=== PATIENT | male | born 1980 | race Caucasian/White ===

== ENCOUNTER 2017-05-02 02:58 | Emergency (ER) | payer OTHER ==
[2017-05-02 02:54] LABS: BASOPHILS 0.3 %; BASOPHILS ABSOLUTE 0.03 10/3/uL (0.0-0.16); ER CBC TAT 0 Hrs 05 Mins; HEMATOCRIT 43.8 % (40.0-51.0); HEMOGLOBIN 15.9 g/dL (13.6-17.8); IMMATURE GRANULOCYTES 0.4 %; IMMATURE GRANULOCYTES ABSOLUTE 0.04 10/3/uL (0.0-0.11); LYMPHOCYTES 19.8 %; LYMPHOCYTES ABSOLUTE 2.01 10/3/uL (0.67-4.30); MANUAL DIFF NO %; MEAN CORPUS HGB CONC 36.3 g/dL (32.0-36.0); MEAN CORPUSCULAR HEMOGLOB 31.2 pg (26.0-34.0); MEAN CORPUSCULAR VOLUME 85.9 fL (80-100); MEAN PLATELET VOLUME 12.5 fL (9.2-13.0); MONOCYTES 12.7 %; MONOCYTES ABSOLUTE 1.29 10/3/uL (0.21-1.20); NEUTROPHILS 65.8 %; NEUTROPHILS ABSOLUTE 6.67 10/3/uL (2.02-8.40); PLATELET COUNT 196 10/3/uL (150-400); RBC DISTRIBUTION WIDTH 12.1 % (12.0-16.0); WHITE BLOOD CELLS 10.1 10/3/uL (4.5-10.5)
[~2017-05-02 02:58] MED LIST: HUMALOG SC; LANTUS SC; NEUR800 PO; WELLXL150 PO
[2017-05-02 03:00] LABS: INSTRUMENT SERIAL # 8087; SAMPLE Venous; pH 7.44 (7.37-7.43)
[2017-05-02 03:10] LABS: LACTATE 1.3 MMOL/L (0.3-2.4)
[2017-05-02 03:27] LABS: ALBUMIN 3.7 G/DL (3.5-5.0); ALKALINE PHOSPHATASE 104 U/L (45-117); BUN (BLOOD UREA NITROGEN) 26 MG/DL (6-23); CALCIUM, SERUM 9.6 MG/DL (8.5-10.4); CHLORIDE, SERUM 92 MMOL/L (96-112); CO2 (CARBON DIOXIDE) 29 MMOL/L (24-34); CREATININE 0.96 MG/DL (0.70-1.30); GFR AFRICAN AMERICAN 116 ML/MIN (>=60); GFR NON AFRICAN AMERICAN 100 ML/MIN (>=60); GLOBULIN 3.7 G/DL (2.5-4.1); GLUCOSE, SERUM 435 MG/DL (60-99); POTASSIUM, SERUM 4.2 MMOL/L (3.5-5.3); SGPT(ALT) 37 U/L (5-65); SODIUM, SERUM 131 MMOL/L (135-148); TOTAL BILIRUBIN 0.3 MG/DL (0-1.2); TOTAL PROTEIN 7.4 G/DL (6.0-8.5)
[2017-05-02 03:41] LABS: PARTIAL THROMBO TIME 21.5 SEC (22.5-37.2); PROTIME (NOT ORD) 12.8 SEC (12.0-14.5)
[2017-05-02 03:43] LABS: SGOT(AST) 23 U/L (5-40)
[2017-05-02 03:47] LABS: PROCALCITONIN 0.08 ng/mL (<0.5)
[2017-05-02 04:28] LABS: ASCORBIC ACID (UR NOT ORDER) NEG (NEG); BILIRUBIN, URINE NEGATIVE (NEG); ER URINALYSIS TAT 0 Hrs 16 Mins; KETONE, URINE 20 MG/DL (NEG); LEUKOCYTE ESTERASE(NOT OR NEG (NEG); NITRITE (URINE) NEG (NEG); WBC (NOT ORDERED) (RFLEX) < 1 (0-5)
[2017-05-02 04:43] LABS: AMPHETAMINES (NOT ORD) NEG (NEG); BARBITURATES (NOT ORDERED NEG (NEG); BENZODIAZEPINES (NOT ORD) NEG (NEG); CANNABINOIDS (THC) NEG (NEG); COCAINE (NOT ORDERED) POS (NEG); OPIATES POS (NEG); PHENCYCLIDINE(PCP) NEG (NEG); TRICYCLICS NEG (NEG)
== END 2017-05-02 05:15 | disposition home or self-care (01) ==
LOC: ER 02:58
PROVIDERS: Emergency Medicine
DX: E10.65 Type 1 diabetes mellitus with hyperglycemia (principal); F19.90 Other psychoactive substance use, unspecified, uncomplicated; F17.200 Nicotine dependence, unspecified, uncomplicated; F32.9 Major depressive disorder, single episode, unspecified; Z88.8 Allergy status to other drugs, medicaments and biological substances; Z79.4 Long term (current) use of insulin; Z79.899 Other long term (current) drug therapy
CPT/HCPCS: 71010; 80053; 80305; 81001; 82009; 82805; 82962; 83605; 84145; 85025; 85610; 85730; 87040; 93005; 96374; 99284; A9270-GY

== ENCOUNTER 2017-05-03 06:31 | Emergency (ER) | payer OTHER ==
[2017-05-03 05:40] LABS: BASOPHILS 0.6 %; BASOPHILS ABSOLUTE 0.04 10/3/uL (0.0-0.16); EOSINOPHILS 1.9 %; EOSINOPHILS ABSOLUTE 0.13 10/3/uL (0.0-0.53); ER CBC TAT 0 Hrs 05 Mins; HEMATOCRIT 40.5 % (40.0-51.0); HEMOGLOBIN 14.3 g/dL (13.6-17.8); IMMATURE GRANULOCYTES 0.1 %; IMMATURE GRANULOCYTES ABSOLUTE 0.01 10/3/uL (0.0-0.11); LYMPHOCYTES 24.5 %; LYMPHOCYTES ABSOLUTE 1.68 10/3/uL (0.67-4.30); MEAN CORPUS HGB CONC 35.3 g/dL (32.0-36.0); MEAN CORPUSCULAR HEMOGLOB 30.3 pg (26.0-34.0); MEAN CORPUSCULAR VOLUME 85.8 fL (80-100); MEAN PLATELET VOLUME 12.2 fL (9.2-13.0); MONOCYTES 12.4 %; MONOCYTES ABSOLUTE 0.85 10/3/uL (0.21-1.20); NEUTROPHILS 60.5 %; NEUTROPHILS ABSOLUTE 4.14 10/3/uL (2.02-8.40); PLATELET COUNT 194 10/3/uL (150-400); RBC DISTRIBUTION WIDTH 12.1 % (12.0-16.0); RED CELL COUNT 4.72 10/6/uL (4.7-6.1); WHITE BLOOD CELLS 6.9 10/3/uL (4.5-10.5)
[2017-05-03 05:41] LABS: MANUAL DIFF NO %
[2017-05-03 05:58] LABS: ALBUMIN 3.5 G/DL (3.5-5.0); ALKALINE PHOSPHATASE 95 U/L (45-117); CHLORIDE, SERUM 95 MMOL/L (96-112); CREATININE 0.86 MG/DL (0.70-1.30); GFR AFRICAN AMERICAN 127 ML/MIN (>=60); GFR NON AFRICAN AMERICAN 110 ML/MIN (>=60); GLOBULIN 3.4 G/DL (2.5-4.1); POTASSIUM, SERUM 4.1 MMOL/L (3.5-5.3); SGOT(AST) 17 U/L (5-40); SGPT(ALT) 37 U/L (5-65); SODIUM, SERUM 132 MMOL/L (135-148); TOTAL BILIRUBIN 0.7 MG/DL (0-1.2); TOTAL PROTEIN 6.9 G/DL (6.0-8.5)
[2017-05-03 06:00] LABS: BUN (BLOOD UREA NITROGEN) 17 MG/DL (6-23); CALCIUM, SERUM 8.6 MG/DL (8.5-10.4); CO2 (CARBON DIOXIDE) 23 MMOL/L (24-34); GLUCOSE, SERUM 377 MG/DL (60-99)
[2017-05-03 06:57] LABS: ACETONE SMALL
[2017-05-03 08:08] LABS: ASCORBIC ACID (UR NOT ORDER) NEG (NEG); BILIRUBIN, URINE NEGATIVE (NEG); ER URINALYSIS TAT 0 Hrs 26 Mins; KETONE, URINE 80 MG/DL (NEG); LEUKOCYTE ESTERASE(NOT OR NEG (NEG); NITRITE (URINE) NEG (NEG); WBC (NOT ORDERED) (RFLEX) < 1 (0-5)
== END 2017-05-03 09:18 | disposition home or self-care (01) ==
LOC: ER 06:31
PROVIDERS: Nurse Practitioner
DX: E86.0 Dehydration (principal); F19.10 Other psychoactive substance abuse, uncomplicated; E11.65 Type 2 diabetes mellitus with hyperglycemia; F32.9 Major depressive disorder, single episode, unspecified; F41.9 Anxiety disorder, unspecified; F17.200 Nicotine dependence, unspecified, uncomplicated; Z88.5 Allergy status to narcotic agent; Z88.8 Allergy status to other drugs, medicaments and biological substances; Z79.4 Long term (current) use of insulin; Z79.899 Other long term (current) drug therapy
CPT/HCPCS: 80053; 81001; 82009; 82962; 85025; 96374; 99285; A9270-GY

== ENCOUNTER 2017-05-15 10:20 | Observation (INO) | payer OTHER ==
--- NOTE | ~2017-05-15 | HP ---
History And Physical [place] [id number] [facility] [place]. [address] NAME: NAT GOMEZ : 76 STATUS : ADM IN [facility]#: [id number] AGE: 36 ADM/REG DATE : 05/15/17 MR#: [id number] REPORT SERV DATE: 05/15/17 DICTATED BY: OLIMPIA PICHARDO DATE: 05/15/17 REPORT STATUS : Draft TRANSCRIBED BY: MODReva DATE: 05/15/17 DATE OF ADMISSION: 05/15/2017 REASON FOR ADMISSION: Mild diabetic ketoacidosis. HISTORY OF PRESENT ILLNESS: This is a 36-year-old white male, who says he had some bad chicken. He has been having some nausea, vomiting, and diarrhea since he ate it two or three days ago. He has not taken his insulin last three days. In the emergency room, he presented with a blood sugar of 589. However, with one dose of insulin, it has come down to 120. Insulin drip was going to be initiated that was stopped by Dr. Strong before it got started. He has been noncompliant and said to have been in the hospital in the past. Review of old records indicates the patient was last here in September 2016. He did have a discharge against medical advice on 09/22/2015 for diabetic ketoacidosis that has resolved. He does have a history of cocaine use in the past, but denies at this time. PAST MEDICAL HISTORY: He has had diabetes type 1 for the last 17 years. He does have some peripheral neuropathy. He had been using narcotic medication in the past including cocaine recreationally; however, this has ceased. He has had no insulin last three days. MEDICATIONS: Previous medication was listed as Wellbutrin XL 300 mg p.o. daily, Neurontin 800 mg four times a day, and Lantus 35 units once a day with Humalog sliding scale. SOCIAL HISTORY: He had used street drugs in the past including cocaine. He occasionally drinks alcohol. He denies cigarette use. Single, no children. FAMILY HISTORY: Cancer in the parents. No diabetes. REVIEW OF SYSTEMS: Limited because of the patient's somnolence. He is given Dilaudid by Dr. Strong before arrival. He is arousable, says he has no doctor to take care of his diabetes. He has had no insulin in the last three days. He has had pain in his left foot and his low back. He says he has chronic low back pain, but this is better now after the narcotic medicine. He has had no fever, chills, or night sweats. No cough productive of yellow sputum. No fevers, chills, or convulsions. The remainder of the review of systems is negative. PHYSICAL EXAMINATION: GENERAL: White male, in no acute distress. VITAL SIGNS: Blood pressure is 146/72, with a heart rate of 88, respiratory rate 16, and afebrile. HEENT: EOMI. Sclerae slightly injected. Conjunctivae slightly injected. NECK: No bruit without any JVD. CHEST: Clear to A and P. HEART: Regular S1, S2 without murmur, gallop, or click. ABDOMEN: Soft, nontender. Bowel sounds are positive. No HSM. EXTREMITIES: Have no edema. Distal pulses are palpable with dorsalis pedis and posterior History And Physical [address] [address] NAME: NAT GOMEZ : 76 STATUS : ADM IN [facility]#: [id number] AGE: 36 ADM/REG DATE : 05/15/17 MR#: [id number] REPORT SERV DATE: 05/15/17 DICTATED BY: OLIMPIA PICHARDO DATE: 05/15/17 REPORT STATUS : Draft TRANSCRIBED BY: EDGARD DATE: 05/15/17 tibial. NEUROLOGIC: DTRs are equal at the knee jerk. 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 Coordination appears to be intact. He is symmetric neurologically. LABORATORY DATA: His blood sugar initially was 584, now down to 165. Portable chest x-ray shows no radiographic appearance of any acute process. White count 5000, hemoglobin 14.6, hematocrit 40.6, and platelets were 173,000. Lactate level 1.5. The CMP showed a glucose of 520, with a sodium of 126, potassium 4.0, creatinine 0.99, BUN 11, and albumin 3.3. Liver tests are normal. Lipase is normal. Small amount of acetone on serum testing. Urinalysis has not yet been obtained. ASSESSMENT: 1. Mild diabetic ketoacidosis. 2. Noncompliance with insulin therapy. 3. Nausea and vomiting, likely secondary to diabetic ketoacidosis versus toxic ingestion. 4. Diabetes type 1, 17 year duration. 5. Hyperglycemia. PLAN: IV D5 containing solution with every 4 hour NovoLog and work through this converting to subcu before meals and then add Lantus once the patient is eating and the ketoacidosis is cleared. DB/MODL Olimpia Pichardo M.D. / [id number] CC: Tavo Terry M.D.
[2017-05-15 10:40] LABS: BASOPHILS 0.8 %; BASOPHILS ABSOLUTE 0.04 10/3/uL (0.0-0.16); EOSINOPHILS 2.2 %; EOSINOPHILS ABSOLUTE 0.11 10/3/uL (0.0-0.53); ER CBC TAT 0 Hrs 08 Mins; HEMATOCRIT 40.6 % (40.0-51.0); HEMOGLOBIN 14.6 g/dL (13.6-17.8); IMMATURE GRANULOCYTES 0.2 %; IMMATURE GRANULOCYTES ABSOLUTE 0.01 10/3/uL (0.0-0.11); LYMPHOCYTES 29.8 %; LYMPHOCYTES ABSOLUTE 1.48 10/3/uL (0.67-4.30); MANUAL DIFF NO %; MEAN CORPUSCULAR HEMOGLOB 29.8 pg (26.0-34.0); MEAN CORPUSCULAR VOLUME 82.9 fL (80-100); MONOCYTES 9.5 %; MONOCYTES ABSOLUTE 0.47 10/3/uL (0.21-1.20); NEUTROPHILS 57.5 %; NEUTROPHILS ABSOLUTE 2.86 10/3/uL (2.02-8.40); PLATELET COUNT 173 10/3/uL (150-400); RBC DISTRIBUTION WIDTH 12.3 % (12.0-16.0)
[2017-05-15 10:54] LABS: A/G RATIO 1.1 (0.7-1.9); ALBUMIN 3.3 G/DL (3.5-5.0); ALKALINE PHOSPHATASE 103 U/L (45-117); CALCIUM, SERUM 8.6 MG/DL (8.5-10.4); CHLORIDE, SERUM 90 MMOL/L (96-112); CO2 (CARBON DIOXIDE) 26 MMOL/L (24-34); CREATININE 0.99 MG/DL (0.70-1.30); GFR AFRICAN AMERICAN 112 ML/MIN (>=60); GFR NON AFRICAN AMERICAN 96 ML/MIN (>=60); SGPT(ALT) 19 U/L (5-65); SODIUM, SERUM 126 MMOL/L (135-148); TOTAL BILIRUBIN 0.4 MG/DL (0-1.2); TOTAL PROTEIN 6.3 G/DL (6.0-8.5)
[2017-05-15 10:55] LABS: BUN (BLOOD UREA NITROGEN) 11 MG/DL (6-23); GLUCOSE, SERUM 520 MG/DL (60-99); SGOT(AST) 12 U/L (5-40)
[2017-05-15 10:58] LABS: LACTATE 1.5 MMOL/L (0.3-2.4)
[2017-05-15 11:29] LABS: ACETONE SMALL
[2017-05-15] MEDS ORDERED: WELLXL300 PO (13:35)
[2017-05-15 15:59] LABS: PHOSPHORUS, SERUM 3.5 MG/DL (2.5-4.5)
== END 2017-05-15 17:38 | disposition left against medical advice (07) ==
LOC: ER 10:20 → 5SO 12:03
PROVIDERS: Emergency Medicine
DX: E13.10 Other specified diabetes mellitus with ketoacidosis without coma (principal); G62.9 Polyneuropathy, unspecified; Z79.4 Long term (current) use of insulin; Z79.899 Other long term (current) drug therapy; E11.65 Type 2 diabetes mellitus with hyperglycemia
CPT/HCPCS: 71010; 80053; 81001; 82009; 82962; 83605; 83690; 83735; 84100; 85025; 93005; 96372; 96374; 96375; 96376; 99291; A9270-GY; G0378; J1170; J2550